=== PATIENT | female | born 1985 | race Caucasian/White ===

== ENCOUNTER → 2020-01-04 14:45 | Outpatient (CLI) | payer OTHER, MEDICAID, SELFPAY | PROVIDERS: PCP Family Medicine; Visit Provider Urology | DX: Z34.90 Encounter for supervision of normal pregnancy, unspecified, unspecified trimester (principal); R00.2 Palpitations; R07.9 Chest pain, unspecified; F17.200 Nicotine dependence, unspecified, uncomplicated | CPT/HCPCS: 93270 ==

== ENCOUNTER 2020-01-14 00:02 | Emergency (ER) | payer OTHER, MEDICAID, SELFPAY ==
[2020-01-14 00:14] VITALS: BP 128/72; PULSE 99; RESP 18; TEMP 36.8; O2SAT 100; BMI 32.9
[2020-01-14 00:19] LABS: Microscopic, Urine URINE MICROSCOPIC (MICROSCOPIC)
[2020-01-14 00:21] LABS: Appearance,Urine CLEAR (Clear); Bilirubin,Urine Negative (Negative); Blood, Urine Negative (Negative); Color,Urine YELLOW (Yellow); Glucose,Urine (UA) Negative (Negative); Ketones,Urine Negative (Negative); Leukocyte Esterase,Urine TRACE (Negative); Nitrate,Urine Negative (Negative); PH,Urine 6.5 (5.0-8.5); Protein,Urine Negative (Negative); Specific Gravity, Urine 1.015 (1.005-1.030)
[2020-01-14 00:24] LABS: Urine Pregnancy, HCG Qual. Positive (Negative)
[2020-01-14 00:51] LABS: Basophils % 0.3 % (0.1-2.0); Eosinophils # 0.1 K/mm3 (0.0-0.4); Eosinophils % 0.6 % (0.1-12.0); Hematocrit 37.6 % (37.0-47.0); Hemoglobin 13.1 g/dL (12.2-16.2); Lymphocytes # 3.1 K/mm3 (0.7-4.5); Lymphocytes % 31.4 % (10-50); Mean Corpuscular HGB Conc 34.8 g/dL (31.8-35.4); Mean Corpuscular Hemoglobin 31.3 pg (27.0-31.2); Mean Corpuscular Volume 89.9 fl (81-99); Monocytes # 0.4 K/mm3 (0.1-1.0); Monocytes % 4.3 % (1.7-9.3); Neutrophils # 6.3 K/mm3 (1.8-7.8); Neutrophils % 63.5 % (37.0-80.0); Platelet Count 259 K/mm3 (142-424); Red Blood Count 4.19 M/mm3 (4.20-5.40); Red Cell Distribution Width 13.2 % (11.5-17.5); White Blood Count 9.8 K/mm3 (4.8-10.8)
[2020-01-14 01:03] LABS: Amphetamine/Metha Screen,Urine Negative ng/ml (<1000); Barbiturates Screen,Urine Negative ng/ml (<200); Benzodiazepines Screen,Urine Negative ng/ml (<200); Cannabinoid Screen,Urine Negative ng/ml (<50); Cocaine Screen,Urine Negative ng/ml (<300); Methadone Screen,Urine Negative ng/ml (<300); Opiate Screen,Urine Negative ng/ml (<300); Phencyclidine Screen,Urine Negative ng/ml (<25)
[2020-01-14 01:14] LABS: Alanine Aminotransferase 17 U/L (12-78); Albumin Level 4.1 g/dl (3.5-5.0); Albumin/Globulin Ratio 1.5 (1.1-1.8); Alkaline Phosphatase 90 U/L (38-126); Anion Gap 12.4 mEq/L (5-15); Aspartate Amino Transferase 23 U/L (14-36); Bilirubin,Total 0.5 mg/dl (0.2-1.3); Blood Urea Nitrogen 6 mg/dl (7-17); Calcium 8.8 mg/dl (8.4-10.2); Carbon Dioxide 23 mmol/L (22.0-30.0); Chloride 107 mmol/L (98-107); Creatinine Clearance Estimated 191 mL/min (50-200); Erythrocyte Sedimentation Rate 20 mm/hr (0-20); Estimated Glomerular Filt Rate 116 ml/min (>60); GFR (African American) 140 ML/MIN (>60); Globulin 2.7 g/dL (1.3-3.2); Glucose 99 mg/dl (74-100); Potassium 3.4 mmoL/L (3.5-5.1); Sodium 139 mmol/L (136-145); Total Protein,Serum 6.8 g/dl (6.3-8.2)
[2020-01-14 01:20] LABS: C-Reactive Protein 3.4 mg/L (0-4)
[2020-01-14 01:33] LABS: HCG,Quantitative 4458 mIU/ml (0-5.42)
--- NOTE | 2020-01-14 01:42 | HMH.EDURI ---
ED Disposition Clinical Impression: Bronchitis Qualifiers: Weeks of gestation: less than 8 weeks Qualified Code(s): Z3A.01 - Less than 8 weeks gestation of Disposition: Home, Self-Care Condition on Discharge: Good Instructions: DI for Acute Bronchitis Additional Instructions: fluids and use meds and home quaritine till results Prescriptions: cephALEXin [Keflex 500mg Cap] 500 mg PO TID #30 cap Prescription Printed Referrals: Laci Doyle MD [Primary Care Provider] - - Critical Care Critical Care Time: No Attestation: On 01/14/20, the high probability of a clinically significant, sudden or life threatening deterioration of the following system(s) required my full and direct attention, intervention and personal management. The time I documented below is in addition to time spent performing reported procedures but includes the following listed in this critical care notation. Medical Decision Making - Medical Records Medical records reviewed: Yes: I reviewed the patient's medical records. - Yonathan Inquiry Pt receiving controlled substance: No Vital Signs: 01/14/20 00:14 Temperature 98.3 F Temperature Source Oral Pulse Rate [Right] 99 H Respiratory Rate 18 Blood Pressure [Right Arm] 128/72 Blood Pressure Mean [Right Arm] 90 Blood Pressure Source [Right Arm] Automatic Cuff Blood Pressure Position [Right Arm] Sitting 02 Sat by Pulse Oximetry 100 Oxygen Delivery Method Room Air - Lab Data Lab results reviewed: Yes: I reviewed the patient's lab results. Lab Results 01/14/20 00:10: Urine Opiates Screen Negative, Urine Methadone Screen Negative, Ur Barbituates Screen Negative, Ur Phencyclidine Scrn Negative, Ur Amphetamines Screen Negative, U Benzodiazepines Scrn Negative, Urine Cocaine Screen Negative, U Marijuana (THC) Screen Negative 01/14/20 00:15: Urine Color Yellow, Urine Appearance Clear, Urine pH 6.5, Ur Specific [place] 1.015, Urine Protein Negative, Urine Glucose (UA) Negative, Urine Ketones Negative, Urine Blood Negative, Urine Nitrate Negative, Urine Bilirubin Negative, Urine Urobilinogen 4.0, Ur Leukocyte Esterase Trace, Ur Squamous Epith Cells 3-5 01/14/20 00:15: Urine HCG, Qual Positive 01/14/20 00:40: WBC 9.8, RBC 4.19 L, Hgb 13.1, Hct 37.6, MCV 89.9, MCH 31.3 H, MCHC 34.8, RDW 13.2, Plt Count 259, MPV 8.0, Neut % (Auto) 63.5, Lymph % (Auto) 31.4, [place] % (Auto) 4.3, Eos % (Auto) 0.6, Baso % (Auto) 0.3, Neut # (Auto) 6.3, Lymph # (Auto) 3.1, [place] # (Auto) 0.4, Eos # (Auto) 0.1, Baso # (Auto) 0.0, ESR 20 01/14/20 00:40: Sodium 139, Potassium 3.4 L, Chloride 107, Carbon Dioxide 23, Anion Gap 12.4, BUN 6 L, Creatinine 0.60, Estimated Creat Clear 191, Estimated GFR 116, Est GFR ( Amer) 140, Glucose 99, Calcium 8.8, Total Bilirubin 0.5, AST 23, ALT 17, Alkaline Phosphatase 90, C-Reactive Protein 3.4, Total Protein 6.8, Albumin 4.1, Globulin 2.7, Albumin/Globulin Ratio 1.5 01/14/20 00:40: HCG, Quant 4458 H Result diagrams: 01/14/20 00:40 01/14/20 00:40 Orders (Tests/Meds): ED MEDICATIONS Generic Name Dose Route Start Last Admin Trade Name Freq PRN Reason Stop Dose Admin Sodium Chloride 1,000 mls @ 999 mls/hr 01/14/20 00:30 01/14/20 01:02 Sod Chlor 0.9% 1000ml Bag IV 01/14/20 01:30 999 mls/hr .Q1H1M MANJINDER Administration ORDERS Category Date Time Status SARS-CoV-2, [place] ([place]) Stat Lab 01/14/20 00:25 Received URI/Sore Throat HPI - General Chief Complaint: Shortness of Breath/Dyspnea Stated Complaint: Cough, SOA, Sore Throat Time Seen by Provider: 01/14/20 00:30 Mode of Arrival: Ambulatory Source of Information: Patient, Medical Record Limitations: No Limitations Description of Symptoms (Recalled from ER Triage Doc. 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
[2020-01-14 02:01] VITALS: BP 126/74; PULSE 86; RESP 14; TEMP 36.8; O2SAT 99
[2020-01-15 16:38] LABS: Covid-19 Nasal PCR Sendout UK Not Detected
--- NOTE | 2020-01-15 21:30 | PC.NURSE ---
patient called for covid test results given per kristen Nur rn
== END 2020-01-14 02:05 | disposition home or self-care (01) ==
PROVIDERS: Emergency Provider Emergency Medicine; PCP Family Medicine
DX: Z03.818 Encounter for observation for suspected exposure to other biological agents ruled out (principal); Z3A.01 Less than 8 weeks gestation of pregnancy; Z88.5 Allergy status to narcotic agent; R00.2 Palpitations
CPT/HCPCS: 80053; 80305; 81001; 81025; 84702; 85025; 85651; 86140; 96365; 99283; U0003

== ENCOUNTER → 2020-01-27 11:36 | Outpatient (CLI) | payer OTHER, MEDICAID, SELFPAY ==
--- NOTE | 2020-01-27 11:37 | US_ITS ---
PROCEDURE: US OB >= 14 WEEKS FETUS CLINICAL INDICATION: US OB Dates bleeding during the COMPARISON: No exams were available for comparison FINDINGS: An intrauterine gestational sac is present with a pole with a crown-rump length of 1.11cm correlating to gestational age of 7weeks 2days. heart tones are present with an FHR of 128bpm. Yolk sac is noted. The cervix is closed measuring 3 cm in length. IMPRESSION: Live IUP at 7 weeks 2 days Estimated due date by Ultrasound is 09/12/2020 Dictated b Benny Liu MD 01/27/2020 16:46 Benny Liu MD in [facility] 01/27/2020 16:46
== END ==
PROVIDERS: PCP Family Medicine; Visit Provider Obstetrics & Gynecology
DX: O26.841 Uterine size-date discrepancy, first trimester (principal); O46.90 Antepartum hemorrhage, unspecified, unspecified trimester
CPT/HCPCS: 76805

== ENCOUNTER → 2020-01-31 16:58 | Outpatient (CLI) | payer OTHER, MEDICAID, SELFPAY ==
[2020-01-31 17:17] LABS: Basophils # 0.1 K/mm3 (0-0.2); Basophils % 0.7 % (0.1-2.0); Eosinophils # 0.1 K/mm3 (0.0-0.4); Eosinophils % 0.7 % (0.1-12.0); Hematocrit 40.6 % (37.0-47.0); Hemoglobin 13.8 g/dL (12.2-16.2); Lymphocytes # 2.9 K/mm3 (0.7-4.5); Lymphocytes % 32.6 % (10-50); Mean Corpuscular Volume 91.2 fl (81-99); Mean Platelet Volume 7.6 fl (7.4-10.4); Monocytes # 0.3 K/mm3 (0.1-1.0); Monocytes % 3.6 % (1.7-9.3); Neutrophils # 5.5 K/mm3 (1.8-7.8); Neutrophils % 62.4 % (37.0-80.0); Platelet Count 342 K/mm3 (142-424); Red Blood Count 4.45 M/mm3 (4.20-5.40); Red Cell Distribution Width 12.9 % (11.5-17.5); White Blood Count 8.8 K/mm3 (4.8-10.8)
[2020-01-31 23:07] LABS: Barbiturates Screen,Urine Negative ng/ml (<200); Benzodiazepines Screen,Urine Negative ng/ml (<200)
[2020-01-31 23:08] LABS: Amphetamine/Metha Screen,Urine Negative ng/ml (<1000)
[2020-01-31 23:09] LABS: Cannabinoid Screen,Urine Negative ng/ml (<50); Cocaine Screen,Urine Negative ng/ml (<300)
[2020-01-31 23:10] LABS: Methadone Screen,Urine Negative ng/ml (<300)
[2020-01-31 23:11] LABS: Opiate Screen,Urine Negative ng/ml (<300); Phencyclidine Screen,Urine Negative ng/ml (<25)
[2020-02-02 11:20] LABS: HIV Screen 4th Generation wRfx Non Reactive (Non Reactive); Hepatitis B Surface Antigen Negative (Negative); Hepatitis C Antibody 0.1 s/co ratio (0.0-0.9); Rubella Antibodies, IgG 1.86 index (Immune >0.99)
[2020-02-02 16:17] LABS: Rapid Plasma Reagin Ab Titer Non Reactive (NonRea<1:1)
== END ==
PROVIDERS: Visit Provider Obstetrics & Gynecology
DX: Z34.90 Encounter for supervision of normal pregnancy, unspecified, unspecified trimester (principal)
CPT/HCPCS: 36415; 80305; 85025; 86592; 86703; 86762; 86850; 87340; 87380; G0432

== ENCOUNTER 2020-06-22 16:27 | Emergency (ER) | payer MEDICAID, SELFPAY ==
[2020-06-22 17:09] VITALS: BP 108/59; PULSE 99; RESP 16; TEMP 36.9; O2SAT 98; BMI 35.4
--- NOTE | 2020-06-22 17:26 | HMH.EDUTC ---
[facility] [place] Clinical Impression: Viral syndrome, Encounter for laboratory testing for COVID-19 virus Disposition: Home, Self-Care Condition on Discharge: Good Instructions: Sore Throat, DI for COVID-19 (Suspected or Confirmed ), Coronavirus Disease 2019, COVID-19: Testing and Tracing, Preventing the Spread of Coronavirus Discharge Instructions Additional Instructions: *Monitor Temp, Over the counter Motrin or Tylenol as directed/as needed Tylenol every 4 hours and Motrin every 6 hours (as long as your family doctor has told you that you can take it) for fever or pain. and straight to ER if unable to lower temp less than 101.0 after medication given *Warm salt water gargles may help to soothe the throat *Throat Lozenges *Warm fluids like tea with honey may help to soothe the throat *Sleep elevated *Humidifier/Vaporizer Your throat swab was sent for culture. Those results are typically sent to your primary care. Be sure to follow up in 2-3 days with your family doctor/primary care physician if no improvement so they can review those result and treat if necessary. If you don?t have a primary care doctor, I recommend you get one but in the mean time, you will have to return to a walk in clinic Follow up IMMEDIATELY for new or worsening symptoms or no Noticeable improvement over the next 48-72 hours. 911 for difficulty breathing or swallowing You were tested for today for COVID19 your test result should be back in the next 24-48 hours, you may call to the [facility] to see if your test results are back in the next 48 hours [phone] [facility] hours are 9am-9pm You was given a handout with instructions for Self Quarantine and Self isolation for while you wait on test results and what to do if they are positive If you are positive the Health Dept will be contacting you also Referrals: Laci Doyle MD [Primary Care Provider] - As needed Time of Disposition: 17:28 Medical Decision Making - Yonathan Inquiry Pt receiving controlled substance: No Yonathan was queried for this patient: No Vital Signs: 06/22/20 17:09 Temperature 98.4 F Temperature Source Oral Pulse Rate [Right] 99 H Respiratory Rate 16 Blood Pressure [Right Arm] 108/59 L Blood Pressure Mean [Right Arm] 75 Blood Pressure Source [Right Arm] Automatic Cuff Blood Pressure Position [Right Arm] Sitting 02 Sat by Pulse Oximetry 98 Oxygen Delivery Method Room Air - Lab Data Lab results reviewed: Yes: I reviewed the patient's lab results. Orders (Tests/Meds): ORDERS Category Date Time Status Covid-19 Nasal PCR ([facility]) Routine Lab 06/22/20 17:15 Ordered [facility] [place] HPI - General Stated complaint: covid test 30 weeks Time Seen by Provider: 06/22/20 17:26 Mode of Arrival: Ambulatory Source of Information: Patient Limitations: No Limitations Description of Symptoms (Recalled from Triage Doc. by RN): pt c/o fever, sore thraot, cough. Exposed strep and covid HEENT Symptoms (Recalled from RN notes): Yes (fever, sore throat) Resp Symptoms (Recalled from RN notes): No Skin Symptoms (Recalled from RN notes): No MS Symptoms (Recalled from RN notes): No Functional Status (Recalled from RN notes): na - History of Present Illness Provider Complaint: Patient state that she is 30wks OB States that her son recently tested positive for Strep throat and she was also recently exposed to someone who tested positive for COVID States that she came in to get checked for Strep and tested for COVID due to she is and today her throat has felt scratchy and having body aches with low grade fever - Related Data Previous Rx's Medication Instructions Recorded benzonatate 100 mg capsule 200 mg PO BID PRN #30 cap 03/09/20 Allergies Allergy/AdvReac Type Severity Reaction Status Date / Time morphine Allergy Mild Verified 03/01/20 14:43 - Worker's Comp Is this a Worker's Comp case?: No [facility] History - Hepatitis A Screen Drug use history?: No High risk sexu
[2020-06-22 17:52] VITALS: BP 108/59; PULSE 99; RESP 16; TEMP 36.9; O2SAT 98
[2020-06-22 21:30] LABS: UTC Strep Screen (Rapid) Negative (Negative)
== END 2020-06-22 17:53 | disposition home or self-care (01) ==
PROVIDERS: Emergency Provider Nurse Practitioner; PCP Family Medicine
DX: Z20.822 Contact with and (suspected) exposure to COVID-19 (principal); B34.9 Viral infection, unspecified; Z3A.30 30 weeks gestation of pregnancy; R00.2 Palpitations; F17.210 Nicotine dependence, cigarettes, uncomplicated
CPT/HCPCS: 87880; 99202; G0463; U0003

== ENCOUNTER → 2020-07-16 12:37 | Outpatient (CLI) | payer MEDICAID, SELFPAY ==
[2020-07-16 12:42] LABS: MANUAL DIFFERENTIAL MANUAL DIFFERENTIAL (MANUAL DIFF)
--- NOTE | 2020-07-16 12:51 | XR_ITS ---
PROCEDURE: XR CHEST 2V CLINICAL HISTORY: cough, ppd positive COMPARISON: No exams were available for comparison FINDINGS: The cardiomediastinal silhouette and pulmonary vascularity are within normal limits. The lungs are clear without infiltrates, suspicious nodules, or pleural effusions. No acute bony abnormalities. IMPRESSION: No acute findings. Dictated by: Benny Liu MD 07/16/2020 17:15 Benny Liu MD in [facility] 07/16/2020 17:15
[2020-07-16 13:00] LABS: Basophils % 0.4 % (0.1-2.0); Eosinophils # 0.1 K/mm3 (0.0-0.4); Eosinophils % 0.7 % (0.1-12.0); Hematocrit 34.1 % (37.0-47.0); Hemoglobin 11.7 g/dL (12.2-16.2); Lymphocytes # 2.3 K/mm3 (0.7-4.5); Lymphocytes % 23.2 % (10-50); Mean Corpuscular HGB Conc 34.4 g/dL (31.8-35.4); Mean Corpuscular Hemoglobin 31.3 pg (27.0-31.2); Mean Corpuscular Volume 91.2 fl (81-99); Mean Platelet Volume 8.4 fl (7.4-10.4); Monocytes # 0.3 K/mm3 (0.1-1.0); Monocytes % 2.5 % (1.7-9.3); Neutrophils # 7.3 K/mm3 (1.8-7.8); Neutrophils % 73.3 % (37.0-80.0); Platelet Count 307 K/mm3 (142-424); Red Blood Count 3.74 M/mm3 (4.20-5.40); Red Cell Distribution Width 13.7 % (11.5-17.5)
[2020-07-16 13:21] LABS: Albumin Level 3.6 g/dl (3.5-5.0); Albumin/Globulin Ratio 1.2 (1.1-1.8); Alkaline Phosphatase 144 U/L (38-126); Anion Gap 9.7 mEq/L (5-15); Bilirubin,Total 0.4 mg/dl (0.2-1.3); Blood Urea Nitrogen 3 mg/dl (7-17); Carbon Dioxide 20 mmol/L (22.0-30.0); Chloride 106 mmol/L (98-107); Chol/HDL Ratio 3.1 (1-3.5); Cholesterol 236 mg/dl (140-200); Estimated Glomerular Filt Rate 185 ml/min (>60); GFR (African American) 224 ML/MIN (>60); Globulin 2.9 g/dL (1.3-3.2); HDL Cholesterol 76 mg/dl (40-60); Potassium 3.7 mmoL/L (3.5-5.1); Sodium 132 mmol/L (136-145); Total Protein,Serum 6.5 g/dl (6.3-8.2); Triglycerides 307 mg/dl (30-150); VLDL Cholesterol 61 mg/dL (0-40)
[2020-07-16 13:22] LABS: Alanine Aminotransferase 8 U/L (12-78); Aspartate Amino Transferase 16 U/L (14-36)
[2020-07-16 13:27] LABS: Calcium 8.9 mg/dl (8.4-10.2); Glucose 114 mg/dl (74-100)
[2020-07-16 13:32] LABS: Direct LDL Cholesterol 123.63 mg/dL (100-129)
[2020-07-16 17:09] LABS: Lymphocytes % 12 % (10-50); Monocytes % 5 % (2-9); Neutrophils % 83 % (42-76); Platelet Estimate Normal; RBC Morphology Normal; Total Cells Counted 100
== END ==
PROVIDERS: Visit Provider Family Medicine
DX: Z34.90 Encounter for supervision of normal pregnancy, unspecified, unspecified trimester (principal); Z13.220 Encounter for screening for lipoid disorders; Z77.011 Contact with and (suspected) exposure to lead; R05 Cough
CPT/HCPCS: 36415; 71046; 80053; 80061; 83655; 85007; 85014; 85018; 85048; 85049

== ENCOUNTER 2021-02-22 21:16 | Emergency (ER) | payer MEDICAID, SELFPAY ==
[2021-02-22 21:18] VITALS: BP 107/77; PULSE 102; RESP 18; TEMP 36.7; O2SAT 98; BMI 34.2
[2021-02-22 21:36] VITALS: BP 107/77; PULSE 70; O2SAT 99
--- NOTE | 2021-02-22 21:46 | XR_ITS ---
PROCEDURE INFORMATION: Exam: XR Chest Exam date and time: 02/22/2021 9:46 PM Age: 35 years old Clinical indication: Cough and fever and shortness of breath; Patient HX: Covid positive, cough, fever, SOA TECHNIQUE: Imaging protocol: XR of the chest. Views: 2 views. COMPARISON: CR XR CHEST 2V 07/16/2020 1:01 PM FINDINGS: Lungs: Unremarkable. No consolidation. Pleural spaces: Unremarkable. No pleural effusion. No pneumothorax. Heart/Mediastinum: Unremarkable. No cardiomegaly. Bones/joints: Unremarkable. IMPRESSION: No acute findings.
[2021-02-22 22:00] VITALS: BP 114/71; PULSE 103; O2SAT 98
[2021-02-22 22:15] LABS: Basophils # 0.1 K/mm3 (0-0.2); Basophils % 1.7 % (0.1-2.0); Eosinophils % 0.2 % (0.1-12.0); Hematocrit 47.5 % (37.0-47.0); Hemoglobin 15.7 g/dL (12.2-16.2); Lymphocytes # 1.8 K/mm3 (0.7-4.5); Lymphocytes % 32.4 % (10-50); Mean Corpuscular Hemoglobin 30.2 pg (27.0-31.2); Mean Corpuscular Volume 91.6 fl (81-99); Mean Platelet Volume 8.7 fl (7.4-10.4); Monocytes # 0.4 K/mm3 (0.1-1.0); Monocytes % 7.3 % (1.7-9.3); Neutrophils # 3.3 K/mm3 (1.8-7.8); Neutrophils % 58.4 % (37.0-80.0); Platelet Count 253 K/mm3 (142-424); Red Blood Count 5.18 M/mm3 (4.20-5.40); Red Cell Distribution Width 13.8 % (11.5-17.5); White Blood Count 5.6 K/mm3 (4.8-10.8)
[2021-02-22 22:17] LABS: Urine Pregnancy, HCG Qual. Negative (Negative)
--- NOTE | 2021-02-22 22:18 | HMH.EDURI ---
ED Disposition Clinical Impression: COVID-19 Disposition: Home, Self-Care Condition on Discharge: Good Instructions: DI for COVID-19 (Suspected or Confirmed ) Additional Instructions: use meds and call pcp for follow up Referrals: Laci Doyle MD [Primary Care Provider] - - Critical Care Critical Care Time: No Attestation: On 02/22/21, the high probability of a clinically significant, sudden or life threatening deterioration of the following system(s) required my full and direct attention, intervention and personal management. The time I documented below is in addition to time spent performing reported procedures but includes the following listed in this critical care notation. Medical Decision Making - Medical Records Medical records reviewed: Yes: I reviewed the patient's medical records. - Yonathan Inquiry Pt receiving controlled substance: No Vital Signs: 02/22/21 21:18 02/22/21 21:36 02/22/21 22:00 Temperature 98.1 F Temperature Source Oral Pulse Rate 70 103 H Pulse Rate [Right] 102 H Respiratory Rate 18 Blood Pressure 107/77 L 114/71 Blood Pressure [Right Arm] 107/77 L Blood Pressure Mean 84 88 Blood Pressure Mean [Right Arm] 87 02 Sat by Pulse Oximetry 98 99 98 02/22/21 22:30 02/22/21 23:00 Temperature Temperature Source Pulse Rate 100 H 93 H Pulse Rate [Right] Respiratory Rate Blood Pressure 120/77 101/65 L Blood Pressure [Right Arm] Blood Pressure Mean 88 77 Blood Pressure Mean [Right Arm] 02 Sat by Pulse Oximetry 99 97 - Lab Data Lab results reviewed: Yes: I reviewed the patient's lab results. Lab Results 02/22/21 21:55: WBC 5.6, RBC 5.18, Hgb 15.7, Hct 47.5 H, MCV 91.6, MCH 30.2, MCHC 33.0, RDW 13.8, Plt Count 253, MPV 8.7, Neut % (Auto) 58.4, Lymph % (Auto) 32.4, [place] % (Auto) 7.3, Eos % (Auto) 0.2, Baso % (Auto) 1.7, Neut # (Auto) 3.3, Lymph # (Auto) 1.8, [place] # (Auto) 0.4, Eos # (Auto) 0.0, Baso # (Auto) 0.1, ESR 14 02/22/21 21:55: Urine HCG, Qual Negative 02/22/21 21:55: Sodium 137, Potassium 3.9, Chloride 103, Carbon Dioxide 25, Anion Gap 12.9, BUN 7, Creatinine 0.80, Estimated Creat Clear 148, Estimated GFR 83, Est GFR ( Amer) 100, Glucose 94, Calcium 9.0, Total Bilirubin 0.1 L, AST 23, ALT 12, Alkaline Phosphatase 72, C-Reactive Protein 2.4, Total Protein 7.6, Albumin 4.4, Globulin 3.2, Albumin/Globulin Ratio 1.4, Procalcitonin 0.048 Result diagrams: 02/22/21 21:55 02/22/21 21:55 Orders (Tests/Meds): ED MEDICATIONS Generic Name Dose Route Start Last Admin Trade Name Freq PRN Reason Stop Dose Admin Sodium Chloride 1,000 mls @ 999 mls/hr 02/22/21 23:45 02/22/21 23:45 Sod Chlor 0.9% 1000ml Bag IV 02/23/21 00:45 999 mls/hr .Q1H1M MANJINDER Administration Discontinued Medications Generic Name Dose Route Start Last Admin Trade Name Freq PRN Reason Stop Dose Admin Dexamethasone Sodium Phosphate 10 mg 02/22/21 21:47 02/22/21 22:20 Dexamethasone 4mg/Ml 5ml Mdv IV 02/22/21 21:48 10 mg ONCE ONE Administration Sodium Chloride 1,000 mls @ 999 mls/hr 02/22/21 22:00 02/22/21 22:20 Sod Chlor 0.9% 1000ml Bag IV 02/22/21 23:00 999 mls/hr .Q1H1M MANJINDER Administration Ketorolac Tromethamine 30 mg 02/22/21 21:47 02/22/21 22:19 Ketorolac 30mg/Ml Vial IV 02/22/21 21:48 30 mg ONCE ONE Administration - Radiology Data #1 Image(s): Chest Image Reviewed: Yes I have reviewed radiologist's interpretation Preliminary Findings: Normal/NAD - Reevaluation(s) Time: 01:30 Reevaluation #1: improved Medical Decision Narrative: has covid-19 but stable labs and xrays URI/Sore Throat HPI - General Chief Complaint: Upper Respiratory Infection Stated Complaint: Covid +, Weakness,BARR Time Seen by Provider: 02/22/21 21:25 Mode of Arrival: Ambulatory Source of Information: Patient, Medical Record Limitations: No Limitations Description of Symptoms (Recalled from ER Triage Doc. by RN): pt tested po
[2021-02-22 22:20] LABS: Alanine Aminotransferase 12 U/L (12-78); Albumin Level 4.4 g/dl (3.5-5.0); Albumin/Globulin Ratio 1.4 (1.1-1.8); Alkaline Phosphatase 72 U/L (38-126); Anion Gap 12.9 mEq/L (5-15); Aspartate Amino Transferase 23 U/L (14-36); Blood Urea Nitrogen 7 mg/dl (7-17); Carbon Dioxide 25 mmol/L (22.0-30.0); Chloride 103 mmol/L (98-107); Creatinine Clearance Estimated 148 mL/min (50-200); Estimated Glomerular Filt Rate 83 ml/min (>60); GFR (African American) 100 ML/MIN (>60); Globulin 3.2 g/dL (1.3-3.2); Glucose 94 mg/dl (74-100); Potassium 3.9 mmoL/L (3.5-5.1); Sodium 137 mmol/L (136-145); Total Protein,Serum 7.6 g/dl (6.3-8.2)
[2021-02-22 22:25] LABS: C-Reactive Protein 2.4 mg/L (0-4)
[2021-02-22 22:27] LABS: Bilirubin,Total 0.1 mg/dl (0.2-1.3)
[2021-02-22 22:30] VITALS: BP 120/77; PULSE 100; O2SAT 99
[2021-02-22 22:39] LABS: Erythrocyte Sedimentation Rate 14 mm/hr (0-20)
[2021-02-22 22:41] LABS: Procalcitonin 0.048 ng/mL (0.0-2.0)
[2021-02-22 23:00] VITALS: BP 101/65; PULSE 93; O2SAT 97
[2021-02-23 01:37] VITALS: BP 109/71; PULSE 83; RESP 18; TEMP 36.7; O2SAT 97
== END 2021-02-23 01:42 | disposition home or self-care (01) ==
PROVIDERS: Emergency Provider Emergency Medicine; PCP Family Medicine
DX: U07.1 COVID-19 (principal); R53.1 Weakness; R50.9 Fever, unspecified; F17.210 Nicotine dependence, cigarettes, uncomplicated
CPT/HCPCS: 71046; 80053; 81025; 84145; 85025; 85651; 86140; 96375; 99283